=== PATIENT | male | born 1980 | race Caucasian/White ===

== ENCOUNTER 2019-04-11 11:11 | Outpatient (CLI) | payer OTHER ==
--- NOTE | 2019-04-11 12:40 | Diagnostic Imaging Report ---
PATIENT MR#: [id number] PATIENT PATIENT NAME: PAMELLA IRVING DATE OF : 1980 REFERRING PHYSICIAN: Alanis Briggs EXAM DATE: 04/11/2019 ACCESSION NUMBER: [id number] EXAM DESCRIPTION: US U OR L EXT VEINS UNILAT Exam: Left lower extremity venous Doppler study. History: Pain and swelling. Doppler interrogation and color Doppler imaging of the venous structures in the left lower extremity are submitted. Noncompressibility to the greater saphenous vein and mid thigh is noted. Remaining venous structures are compressible. Impression: Thrombosis in the greater saphenous vein. No other signs of deep vein thrombosis are noted. Read by: Dr. Roland Shaver Transcribed by: Transcribed Date: Electronically signed by: Dr. Roland Shaver Date signed: 04/11/2019 12:39:54 PM
== END 2019-04-11 11:21 ==
LOC: RAD 11:11
PROVIDERS: ATTEND Family Medicine
DX: M79.605 Pain in left leg (principal)
CPT/HCPCS: 93971